=== PATIENT | female | born 1955 | race Caucasian/White ===

== ENCOUNTER 2025-06-29 13:44 | Emergency (ER) | payer BC, SELFPAY ==
[2025-06-29 13:52] VITALS: BP 161/79
[2025-06-29 13:56] VITALS: BMI 21.3
--- NOTE | 2025-06-29 15:00 | ED.GENMED ---
History of Present Illness
General
Chief Complaint: Rabies
Source: patient
Exam Limitations: none
Time Seen by Provider: 06/29/25 14:36
Nursing documentation reviewed up to this point in time: agreed with
History of Present Illness
History of Present Illness:
Patient is a 69-year-old female with history of hypertension, hyperlipidemia who presents to the emergency department for rabies vaccination after bat exposure at home. Both patient and her woke up yesterday morning and there was a bat
flying around their home. She had no known bite or scratch.
After speaking with multiple family members�she came to the emergency department for rabies vaccination series. No prior rabies vaccinations in the past.
No history of vaccination reactions.
Review of Systems
Review of Systems
Allergies reviewed?: Yes
All Other Systems: ROS reviewed and negative except as documented in HPI and ROS
Phy Exam
Physical Exam
Physical Exam:
Vitals: Hypertensive, otherwise vital signs stable. Afebrile
General: Patient is well appearing, no acute distress
Skin: Warm and dry, no rashes or lesions. No obvious bite or scratch lou
Head: Normocephalic, atraumatic
Throat: Protecting airway
Neck: Normal ROM, no cervical spine tenderness
Cardiac: Regular rate
Pulm: No apparent respiratory distress
Abdomen: Nondistended
Extremities: No evidence of cyanosis or edema
Neuro: Grossly intact
Psychiatric: Normal affect.
Course
Orders/Labs/Results
Orders:
Orders
06/29/25 15:01
Rabies Immune Globulin/Pf [HyperRAB] 1,160 unit IM NOW STA
Rabies Vaccine (Pcec)/Pf [Rabavert Rabies Vacc W-Diluent] 2.5 unit IM .ONCE ONE
Vital Signs
Initial and Last Documented VS:
Initial Vital Signs
Temp Pulse Resp BP Pulse Ox
98.4 F 62 18 161/79 97
06/29/25 13:52 06/29/25 13:52 06/29/25 13:52 06/29/25 13:52 06/29/25 13:52
Last Documented Vital Signs
Temp Pulse Resp BP Pulse Ox
98.4 F 62 18 161/79 97
06/29/25 13:52 06/29/25 13:52 06/29/25 13:52 06/29/25 13:52 06/29/25 15:00
MDM/Problems Addressed
Differential Diagnosis Includes:
Not limited to: Need for rabies prophylaxis, etc
MDM/Problems Addressed:
69 y.o F presenting for rabies vaccination series after bat found in home yesterday morning. No known bite or scratch lou. No prior rabies vaccination. Vitals and exam as above. Bat was unable to be trapped / tested - utilized shared decision
making and will proceed with rabies vaccination series. Immunoglobin and dose #1 of rabies vaccine given in ED today. Patient tolerated injections well.
Remainder of vaccination schedule discussed at length - she will receive additional doses at either infusion clinic or ED. Return precautions discussed. Stable for discharge.
Chronic conditions affecting care:
N/A
Acute Exacerbation and/or Progression of Chronic Illness:
N/A
*Pulse Oximetry
SaO2: 97
Oxygen Mode of Delivery: Room air
Patient hypoxic: no
*EKG
Interpreted by ED Provider?: NA
*Contract Negotiation Manager Interpretation
Rate: Contract Negotiation Manager- N/A
*Critical Care Note
Total Time (30-74mins, 75-104mins- exclusive of procedures): Not Applicable
ED Attending Note
-
Portions of this chart may have been created with voice recognition software.� Occasional wrong word or��sound alike� substitutions may have occurred due to the inherent limitations of voice recognition software.
Discharge Plan
Departure
Patient Disposition: Home (Routine Discharge)
Date of Disposition: 06/29/25
Time of Disposition: 15:06
Patient with high blood pressure during this ER visit?: Yes
Condition: Good
Discharge Problem:
Rabies, need for prophylactic vaccination against
Instructions: BLOOD PRESSURE, Rabies
Prescriptions:
New
RabAvert (PF) 2.5 unit suspension for reconstitution
2.5 unit IM ONCE Qty: 3 0RF
Rx Instructions:
Inject 1ml on 07/02/25, 07/06/25, and 07/13/25
Stand Alone Forms: Rabies Vaccine Post Exp Dosing
Activity Restrictions/Additional Instructions:
RETURN TO THE EMERGENCY DEPARTMENT WITH ANY FEVER, NEW RASH, SIGNS OF INJECTION SITE/VACCINATION REACTION, OR ANY OTHER CONCERNS
- You were given the rabies immunoglobulin and dose #1 of the rabies vaccination in the emergency department today. You will require 3 additional doses of the rabies vaccination which should be received on 07/02/25, 07/06/25, and 07/13/25. These
can be done at the infusion clinic here at [facility]�please contact them to make an appointment. You can also have these vaccinations in the emergency department. It is important you complete the full vaccination series
- Follow-up with primary care for further evaluation/management as needed
Monitor your symptoms closely and return to the emergency department with any acute worsening/new symptoms or any other concerns
Interventions
Interventions:
*Risk Screen - Suicide Last Done: 06/29/25 13:52
*Neglect/Abuse Screening Last Done: 06/29/25 13:52
*Nursing Disposition Last Done: 06/29/25 16:38
Discharge Date and Time
Discharge Date/Time: 06/29/25 16:39
Print Language: PASHTO
[2025-06-29] MEDS: RABAVERT RABIES VACC W-DILUENT 2.5 UNIT IM (15:35)
== END 2025-06-29 16:39 | disposition home or self-care (01) ==
LOC: EMR 13:44
PROVIDERS: EMERGENCY PHYSICIAN Emergency Medicine; FAMILY PHYSICIAN Family Medicine
DX: Z20.3 Contact with and (suspected) exposure to rabies (principal); Z23 Encounter for immunization; I10 Essential (primary) hypertension; E78.5 Hyperlipidemia, unspecified
CPT/HCPCS: 99281; 90471; 96372; 90375; 90675

== ENCOUNTER 2025-07-02 07:32 | Outpatient (RCR) | payer BC, SELFPAY ==
[2025-07-02 08:10] VITALS: BP 147/83
[2025-07-02] MEDS: RABAVERT RABIES VACC W-DILUENT 2.5 UNIT IM (08:22)
== END 2025-07-03 09:16 | disposition home or self-care (01) ==
LOC: OID 07:32
PROVIDERS: ATTENDING PHYSICIAN Emergency Medicine; FAMILY PHYSICIAN Family Medicine
DX: Z20.3 Contact with and (suspected) exposure to rabies (principal); Z23 Encounter for immunization
CPT/HCPCS: 90471; 90675

== ENCOUNTER 2025-07-06 06:06 | Emergency (ER) | payer BC, SELFPAY ==
[2025-07-06 06:07] VITALS: BP 153/73
--- NOTE | 2025-07-06 06:30 | ED.GENMED ---
History of Present Illness
<Grant Pelletier MD, Resident - Last Filed: 07/06/25 07:06>
General
Chief Complaint: Rabies
Source: patient
Time Seen by Provider: 07/06/25 06:16
History of Present Illness
History of Present Illness:
Patient is a 69-year-old female who presents to the emergency department for follow-up to get her third dose of rabies shot. She has a past medical history of hypertension and hyperlipidemia and takes amlodipine and rosuvastatin for those
conditions respectively. She was in her normal state of health when on the day prior to her initial presentation (06/28/25) she was in contact with a bat that was found flying in her bedroom. She woke up from sleep and saw that the bat was flying
around but was unsure if the bat landed on her or for how long the bat was in the room. She had no known bite or scratch. After speaking with a few of her family members she came to the emergency department for rabies vaccination series. She
has no history of prior rabies vaccinations in the past. She has no history of vaccination reactions. She has already received her 1st and 2nd doses of the vaccine, the first dose was done here in the emergency department and the second one was
done in an outpatient clinic. She presents here today because it is Labor Day and the outpatient clinic for her third dose is closed. she already has an appointment for final rabies vaccination dose on July 13.
Past History
<Grant Pelletier MD, Resident - Last Filed: 07/06/25 07:06>
Past History
ED Past Medical History: Other ( Rabies exposure)
ED Past Surgical History: None
Social History
Tobacco: Non-smoker
Alcohol: None
Drug: None
Personal:
Living: with family
Review of Systems
<Grant Pelletier MD, Resident - Last Filed: 07/06/25 07:06>
Review of Systems
Constitutional: Reports no symptoms
EENT: Reports no symptoms
Respiratory: Reports no symptoms
Cardiac: Reports no symptoms
ABD/GI: Reports no symptoms
: Reports no symptoms
Musculoskeletal: Reports no symptoms
Skin: Reports no symptoms
Neurological: Reports no symptoms
Endocrine: Reports no symptoms
Hematologic/Lymphatic: Reports no symptoms
Psychiatric: Reports no symptoms
Phy Exam
<Grant Pelletier MD, Resident - Last Filed: 07/06/25 07:06>
General Physical Exam
General Presentation: well appearing and no apparent distress
General age: appears stated age
General Skin: warm and dry
General Habitus: normal
General Mental: alert
General Hydration: appears well hydrated
Cardiovascular Exam
Cardiovascular Exam: regular rate/rhythm, no edema, no gallop, no JVD and no murmur
Pulmonary Exam
Pulmonary Exam: lungs clear, no respiratory distress, no rales, chest non tender, no crackles, no rhonchi, no stridor, no wheezing and no cough
Musculoskeletal Exam
Musculoskeletal Exam: full ROM and no edema
Psychiatric Exam
Psychiatric Exam: normal mood/affect
Course
<Grant Pelletier MD, Resident - Last Filed: 07/06/25 07:06>
Orders/Labs/Results
Orders:
Orders
07/06/25 06:45
Rabies Vaccine (Pcec)/Pf [Rabavert Rabies Vacc W-Diluent] 2.5 unit IM .ONCE ONE
07/06/25 06:49
Discharge Patient As Directed
Discharge patient after: Discharge after vaccine administration and monitor for 15 minutes
Vital Signs
Initial and Last Documented VS:
Initial Vital Signs
Temp Pulse Resp BP Pulse Ox
97.7 F 71 18 153/73 98
07/06/25 06:07 07/06/25 06:07 07/06/25 06:07 07/06/25 06:07 07/06/25 06:07
Last Documented Vital Signs
Temp Pulse Resp BP Pulse Ox
97.7 F 71 18 153/73 98
07/06/25 06:07 07/06/25 06:07 07/06/25 06:07 07/06/25 06:07 07/06/25 06:30
<Joann Cheung MD - Last Filed: 07/06/25 07:32>
Orders/Labs/Results
Orders:
Orders
07/06/25 06:45
Rabies Vaccine (Pcec)/Pf [Rabavert Rabies Vacc W-Diluent] 2.5 unit IM .ONCE ONE
07/06/25 06:49
Discharge Patient As Directed
Discharge patient after: Discharge after vaccine administration and monitor for 15 minutes
Vital Signs
Initial and Last Documented VS:
Initial Vital Signs
Temp Pulse Resp BP Pulse Ox
97.7 F 71 18 153/73 98
07/06/25 06:07 07/06/25 06:07 07/06/25 06:07 07/06/25 06:07 07/06/25 06:07
Last Documented Vital Signs
Temp Pulse Resp BP Pulse Ox
97.7 F 71 18 153/73 98
07/06/25 06:07 07/06/25 06:07 07/06/25 06:07 07/06/25 06:07 07/06/25 06:30
<Grant Pelletier MD, Resident - Last Filed: 07/06/25 07:06>
*Pulse Oximetry
SaO2: 98
Oxygen Mode of Delivery: Room air
Patient hypoxic: no
*Critical Care Note
Total Time (30-74mins, 75-104mins- exclusive of procedures): 60
<Grant Pelletier MD, Resident - Last Filed: 07/06/25 07:06>
Update Note
Update Note:
Problem List:
Presentation for immunization
rabies exposure
Plan:
administer third dose of rabies vaccine
monitor for signs of adverse reaction following vaccine administration
final vaccination due on 07/13/2025
Differential Diagnoses:
rabies exposure�bat found in bedroom
Radiology: not applicable
EKG: not applicable
Labs: not applicable
Updates:
patient to receive her third dose of rabies vaccine here in the emergency department as it is Labor Day in the outpatient clinic where she got her second dose is closed.
Patient already has a final appointment for vaccination at the outpatient clinic on 07/13/2025
ED Attending Note
<Grant Pelletier MD, Resident - Last Filed: 07/06/25 07:06>
-
Portions of this chart may have been created with voice recognition software.� Occasional wrong word or��sound alike� substitutions may have occurred due to the inherent limitations of voice recognition software.
<Joann Cheung MD - Last Filed: 07/06/25 07:32>
ED Attending Note
Patient seen and examined by attending physician: Yes
I performed a history and physical exam of patient and discussed management with resident, I reviewed resident's note and agree with documented findings and plan of care.: Yes
ED Attending Note:
Patient is breathing comfortably and looks well and comfortable. Neurological exam is nonfocal. Patient is here for 3rd rabies vaccination. Patient reports that she has an appointment this Sunday for her fourth vaccination at outpatient infusion
center
Discharge Plan
Departure
Patient Disposition: Home (Routine Discharge)
Date of Disposition: 07/06/25
Time of Disposition: 06:50
Patient with high blood pressure during this ER visit?: No
Discharge Problem:
Rabies exposure
Instructions: Animal Bites (DC), Rabies
Prescriptions:
No Action
RabAvert (PF) 2.5 unit suspension for reconstitution
2.5 unit IM ONCE Qty: 3 0RF
Rx Instructions:
Inject 1ml on 07/02/25, 07/06/25, and 07/13/25
amlodipine 10 mg Tablet
10 mg PO DAILY
rosuvastatin 5 mg Tablet
5 mg PO DAILY
Referrals:
Antoine Disla DO [Family Provider, [facility]]
Stand Alone Forms: Rabies Vaccine Post Exp Dosing
Activity Restrictions/Additional Instructions:
Patient is due to receive her final dose for rabies vaccine on 07/13/2025. Patient states that she has an outpatient clinic appointment for her final dose. If unable to receive her final dose at the outpatient clinic she can return to the emergency
department for her final dose.
Interventions
Interventions:
*Risk Screen - Suicide Last Done: 07/06/25 06:07
*General Assessment Last Done: 07/06/25 06:07
*Neglect/Abuse Screening Last Done: 07/06/25 06:07
*ED COVID-19 Vaccine History Last Done: 07/06/25 06:07
Discharge Date and Time
Print Language: ICELANDIC
[2025-07-06] MEDS: RABAVERT RABIES VACC W-DILUENT 2.5 UNIT IM (07:15)
== END 2025-07-06 07:34 | disposition home or self-care (01) ==
LOC: EMR 06:06
PROVIDERS: EMERGENCY PHYSICIAN Emergency Medicine; FAMILY PHYSICIAN Family Medicine
DX: Z23 Encounter for immunization (principal); Z20.3 Contact with and (suspected) exposure to rabies; I10 Essential (primary) hypertension; E78.5 Hyperlipidemia, unspecified
CPT/HCPCS: 99281; 90471; 90675

== ENCOUNTER 2025-07-13 14:22 | Outpatient (RCR) | payer BC, SELFPAY ==
[2025-07-13 14:53] VITALS: BP 134/86
[2025-07-13] MEDS: RABAVERT RABIES VACC W-DILUENT 2.5 UNIT IM (15:01)
== END 2025-07-14 11:39 | disposition home or self-care (01) ==
LOC: OID 14:22
PROVIDERS: ATTENDING PHYSICIAN Emergency Medicine; FAMILY PHYSICIAN Family Medicine
DX: Z20.3 Contact with and (suspected) exposure to rabies (principal); Z23 Encounter for immunization
CPT/HCPCS: 90471; 90675